=== PATIENT | female | born 1975 | race Caucasian/White ===

== ENCOUNTER → 2017-07-11 09:59 | Outpatient (CLI) | payer OTHER | END | disposition home or self-care (01) | LOC: LAB 09:59 | DX: R19.7 Diarrhea, unspecified (principal); K90.0 Celiac disease ==

== ENCOUNTER → 2018-10-29 09:10 | Outpatient (CLI) | payer OTHER | END | disposition home or self-care (01) | LOC: LAB 09:10 | DX: I10 Essential (primary) hypertension (principal); E78.49 Other hyperlipidemia; R00.2 Palpitations; E03.4 Atrophy of thyroid (acquired); I50.89 Other heart failure; N13.0 Hydronephrosis with ureteropelvic junction obstruction ==

== ENCOUNTER 2019-04-22 09:48 | Outpatient (CLI) | payer OTHER | END 2019-04-22 15:14 | disposition home or self-care (01) | LOC: LAB 09:48 | DX: E55.9 Vitamin D deficiency, unspecified (principal); M05.79 Rheumatoid arthritis with rheumatoid factor of multiple sites without organ or systems involvement; I10 Essential (primary) hypertension; E06.3 Autoimmune thyroiditis; E03.8 Other specified hypothyroidism; C90.00 Multiple myeloma not having achieved remission ==

== ENCOUNTER 2019-04-22 10:56 | Outpatient (CLI) | payer OTHER | END 2019-04-22 12:12 | disposition home or self-care (01) | LOC: MAMO-SONO 10:56 | DX: Z12.31 Encounter for screening mammogram for malignant neoplasm of breast (principal); N60.11 Diffuse cystic mastopathy of right breast ==

== ENCOUNTER 2019-04-22 12:57 | Outpatient (CLI) | payer OTHER | END 2019-04-22 13:02 | disposition home or self-care (01) | LOC: RAD 12:57 | DX: M15.0 Primary generalized (osteo)arthritis (principal) ==

== ENCOUNTER 2020-07-11 11:04 | Outpatient (CLI) | payer OTHER | END 2020-07-11 11:19 | disposition home or self-care (01) | LOC: SONOGRAMA 11:04 → MAMO-SONO 11:15 → SONOGRAMA 11:19 | DX: N60.02 Solitary cyst of left breast (principal); N60.01 Solitary cyst of right breast; N64.59 Other signs and symptoms in breast ==

== ENCOUNTER 2022-10-30 12:43 | Outpatient (CLI) | payer OTHER | END 2022-10-30 12:49 | disposition home or self-care (01) | LOC: NUCLEAR 12:43 | DX: M81.0 Age-related osteoporosis without current pathological fracture (principal) ==

== ENCOUNTER 2022-10-30 14:32 | Outpatient (CLI) | payer OTHER | END 2022-10-30 14:34 | disposition home or self-care (01) | LOC: MAMO-SONO 14:32 | DX: Z12.31 Encounter for screening mammogram for malignant neoplasm of breast (principal); N60.21 Fibroadenosis of right breast; N60.22 Fibroadenosis of left breast; N77.1 Vaginitis, vulvitis and vulvovaginitis in diseases classified elsewhere ==

== ENCOUNTER 2024-01-13 09:09 | Outpatient (CLI) | payer OTHER | END 2024-01-13 09:13 | disposition home or self-care (01) | LOC: MAMO-SONO 09:09 | DX: N60.21 Fibroadenosis of right breast (principal); N60.22 Fibroadenosis of left breast; N77.1 Vaginitis, vulvitis and vulvovaginitis in diseases classified elsewhere; R06.02 Shortness of breath; R05.9 Cough, unspecified; R07.9 Chest pain, unspecified; Z12.31 Encounter for screening mammogram for malignant neoplasm of breast ==

== ENCOUNTER 2024-06-08 11:15 | Outpatient (CLI) | payer OTHER | END 2024-06-08 11:24 | disposition home or self-care (01) | LOC: RAD 11:15 | DX: M25.511 Pain in right shoulder (principal); M75.31 Calcific tendinitis of right shoulder | CPT/HCPCS: 73221 ==

== ENCOUNTER → 2025-01-21 | Outpatient (CLI) | payer OTHER | END | disposition home or self-care (01) | LOC: SONOGRAMA 09:16 | DX: N60.21 Fibroadenosis of right breast (principal); N60.22 Fibroadenosis of left breast; R10.2 Pelvic and perineal pain ==